=== PATIENT | female | born 1980 | race Caucasian/White ===

== ENCOUNTER 2021-03-27 07:11 | Inpatient (IN) ==
--- NOTE | 2021-02-27 09:56 | History and Physical Report ---
DATE OF ADMISSION: 03/27/2021 HISTORY OF PRESENT ILLNESS: The patient is scheduled for section on 03/27/2021: This is a 40-year-old G1, P0, due date is 03/29/2021, patient was conceived through IVF at [facility]. course has been unremarkable. The patient wishes to have a section because she has a history of anal fissures and after risks and benefits, the patient had decided to undergo elective section. COURSE: Has been unremarkable. LABS: Hepatitis B, C, HIV are negative, RPR is nonreactive. PAST MEDICAL HISTORY: The patient has history of anxiety, anal fissures and hypothyroidism. PAST SURGICAL HISTORY: The patient has had dental surgery in the past. SOCIAL HISTORY: The patient denies tobacco, drug or alcohol use. FAMILY HISTORY: Noncontributory. ALLERGIES: The patient has no known drug allergies. PHYSICAL EXAMINATION: GENERAL: Well-developed, well-nourished white female in no acute distress. HEART: S1, S2, regular rhythm and rate. LUNGS: Clear to auscultation bilaterally. ABDOMEN: Gravid. heart rate today is 140s. The patient has no contractions, no shortness of breath. EXTREMITIES: No cyanosis, clubbing or edema. PELVIC: Deferred. ASSESSMENT AND PLAN: A 40-year-old G1, P0, through IVF, due date 03/29/2021, the patient wishes to have section because of history of anal fissures. Risks and benefits of surgery are discussed including infection, bleeding, and damage to adjacent structures. The patient was signed consent on day of surgery with Dr. Arellano.
--- NOTE | 2021-03-18 08:31 | Anesthesiology Consultation ---
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 Preoperative COVID19 testing to be completed on 03/25 at [facility]. Chart Review Chart Review: Patient NOT seen in Pre Admission Testing and entry specialist initiated History Surgery Operation Date: 03/27/21 09:05 Proposed Procedures p Section in JAREK - Destiny Arellano MD Height/Weight Height: 5 ft 6.75 in Weight: 96.162 kg Allergies Allergy/AdvReac Type Severity Reaction Status Date / Time No Known Allergies Allergy Unverified 03/15/21 11:31 Medications Home Medications Medication Instructions Recorded Confirmed Last Taken thyroid (pork) [[place] Thyroid] 30 mg PO QAM 02/21/19 03/15/21 02/20/19 Dha 500 500 mg PO QAM 03/15/21 03/15/21 Unknown Magnesium Maleate 360 mg PO QAM 03/15/21 03/15/21 Unknown lactobacillus combination no.4 3,000 mmu cells PO QAM 03/15/21 03/15/21 Unknown [Probiotic] [id number] 1 tab PO QAM 03/15/21 03/15/21 Unknown [] zinc 50 mg PO DAILY 03/15/21 03/15/21 Unknown Past Medical History Medical History (Updated 03/18/21 @ 08:29 by Danny Argueta) Anxiety hx Depression hx GERD (gastroesophageal reflux disease) during History of COVID-19 10/2020 head cold symptoms, ache, fatigue, no current problems Hypothyroidism Past Surgical History Surgical History (Updated 03/18/21 @ 08:28 by Danny Argueta) Hx of colonoscopy Hx of pelvic surgery egg retrieval Hx of wisdom tooth extraction Social History Smoking Status: Former smoker Do You Dip or Chew Tobacco: No Hx Alcohol Use: No Hx Substance Use: No substance use type: does not use
[~2021-03-27 07:11] MED LIST: CITRIC ACID/SODIUM CITRATE 15 ML UDC PO SCH; LACTATED RINGER'S 1,000 ML IV SCH; ceFAZolin 2,000 MG in SYRINGE 0 ML IV SCH
[2021-03-27] MEDS ORDERED: LACTATED RINGER'S 1,000 ML IV SCH (07:56)
[2021-03-27 08:01] LABS: Basophils # (auto) 0.01 K/uL (0-0.2); Basophils % (auto) 0.1 %; Eosinophils # (auto) 0.08 K/uL (0-0.5); Eosinophils % (auto) 0.9 %; Hematocrit (blood only) 39.2 % (37-47); Hemoglobin 13.8 g/dL (12.0-16.0); Immature Granulocytes # (auto) 0.04 K/uL (0.00-0.02); Immature Granulocytes % (auto) 0.5 %; Lymphocytes # (auto) 1.57 K/uL (1.2-3.4); Lymphocytes % (auto) 18.3 %; Mean Corpuscular Hemoglobin 32.7 pg (25-34); Mean Corpuscular Hgb Conc 35.2 g/dL (32-36); Mean Corpuscular Volume 92.9 fL (80-100); Mean Platelet Volume 11.5 fL (7.4-10.4); Monocytes # (auto) 0.68 K/uL (0.11-0.59); Monocytes % (auto) 7.9 %; Neutrophils # (auto) 6.22 K/uL (1.4-6.5); Neutrophils % (auto) 72.3 %; Platelet Count 170 K/uL (130-400); RDW Coefficient of Variation 12.9 % (11.5-14.5); RDW Standard Deviation 43.4 fL (36.4-46.3); Red Blood Count 4.22 M/uL (4.2-5.4)
[2021-03-27] MEDS ORDERED: fentaNYL citrate 100 MCG/2 ML VIAL ONE (08:51)
[2021-03-27] MEDS ORDERED: MoRPHine SULFATE PF 1 MG/ML 10 ML AMP/VIAL ONE (08:51)
--- NOTE | 2021-03-27 09:36 | History & Physical Bridge Note ---
Date of Service March 27, 2021 History & Physical Bridge Note I have examined the patient, reviewed the History & Physical and in the interval since the performance of the History & Physical I have noted the following changes of clinical significance: no changes noted h/o anal fistula, recommended Csection by colorectal surgeon
[2021-03-27] MEDS ORDERED: METHYLERGONOVINE MALEATE 0.2 MG/ML AMP ONE (11:10)
[2021-03-27] MEDS ORDERED: PHENYLEPHRINE 100MCG/ML 5ML SYR ONE (11:12)
[2021-03-27] MEDS ORDERED: ePHEDrine sulfate 50 MG/ML SYR ONE (11:12)
[2021-03-27] MEDS ORDERED: ONDANSETRON INJ 2 MG/ML 2 ML VIAL ONE (11:12)
[2021-03-27] MEDS ORDERED: OXYTOCIN 10 UNITS/ML VIAL ONE (11:12)
[2021-03-27] MEDS ORDERED: LACTATED RINGER'S 500 ML IV PRN (11:29)
[2021-03-27] MEDS ORDERED: ePHEDrine sulfate 50 MG/ML AMP IV PRN (11:29)
[2021-03-27] MEDS ORDERED: NALOXONE HCL 1 MG in SODIUM CHLORIDE 0.9% 1000ML 1,000 ML IV PRN (11:29)
[2021-03-27] MEDS ORDERED: HYDROmorphone INJ 0.5 MG/0.5 ML SYR IV PRN (11:29)
[2021-03-27] MEDS ORDERED: diphenhydrAMINE 50 MG/ML VIAL IV PRN (11:29)
[2021-03-27] MEDS ORDERED: NALOXONE HCL 0.4 MG/1 ML VIAL/CARP IV PRN (11:29)
[2021-03-27] MEDS ORDERED: NALOXONE HCL 0.08 MG in SYRINGE 1.8 ML IV PRN (11:29)
[2021-03-27] MEDS ORDERED: ONDANSETRON INJ 2 MG/ML 2 ML VIAL IV PRN (11:29)
[2021-03-27] MEDS ORDERED: MoRPHine SULFATE 2 MG/ML CARP IV PRN (11:29)
[2021-03-27] MEDS ORDERED: MoRPHine SULFATE PF 1 MG/ML 10 ML AMP/VIAL INT SPINAL ONE (11:29)
[2021-03-27] MEDS ORDERED: NO NARCOTICS OR SEDATIVES SCH (11:30)
[2021-03-27] MEDS ORDERED: SODIUM CHLORIDE 0.9% 1000ML 1,000 ML IV SCH (11:30)
[2021-03-27] MEDS ORDERED: DIPHTHERIA/TETANUS/PERTUSSIS 0.5 ML SYR/VIAL IM ONE (11:46)
[2021-03-27] MEDS ORDERED: BENZOCAINE 20% AER SPR 82.5 GM CAN EXT PRN (11:46)
[2021-03-27] MEDS ORDERED: MAGNESIUM HYDROXIDE SUSP 30 ML UDC PO PRN (11:46)
[2021-03-27] MEDS ORDERED: MEASLES, MUMPS & RUBELLA VIRUS VIAL SQ ONE (11:46)
[2021-03-27] MEDS ORDERED: SUPERCREAM 0.870% 15 GM JAR EXT PRN (11:46)
[2021-03-27] MEDS ORDERED: HYDROCORTISONE ACETATE 25 MG SUPP PR PRN (11:46)
[2021-03-27] MEDS ORDERED: SENNA 8.6 MG TAB PO PRN (11:46)
--- NOTE | 2021-03-27 11:46 | Post Operative Brief Note ---
Immediate Post Op Note v1 Date of Surgery March 27, 2021 Pre & Post Diagnosis Operation Date: 03/27/21 09:10 Pre-Op Diagnosis: Term , anal fistula, elective primary section Post-Op Diagnosis: Term , anal fistula, elective primary section I identified the patient and participated in the time-out.: Yes Procedure Operation Date: 03/27/21 09:10 Actual Procedures p Primary Section in OR#3 for living female child at 1103(Bilateral) - Destiny Arellano MD Surgeon Destiny Arellano MD Auger Operator Dr Lee Estimated Blood Loss 600 Findings Consistent with Post-Op Diagnosis Drains Chung Catheter (chung inserted after spinal without difficulty. Pt tolerated well, draining clear yellow urine. Anesthesia to monitor output intraoperatively.) Anesthesia Type Spinal Complications none Disposition Accompanied Patient To Recovery: Yes Disposition: L&D
[2021-03-27] MEDS ORDERED: miSOPROStoL 100 MCG TAB ONE (11:52)
[2021-03-27] MEDS ORDERED: CARBOPROST TROMETHAMINE 250 MCG/ML AMPUL ONE (11:54)
--- NOTE | 2021-03-27 13:26 | Operative Report (OR) ---
DATE OF SURGERY: 03/27/2021. PREOPERATIVE DIAGNOSIS: The patient is a 40-year-old 1, para 0, at 39 weeks and 5 days of gestation who has a history of anal fistula, recommended primary section by the colorectal surgeon. POSTOPERATIVE DIAGNOSIS: The patient is a 40-year-old 1, para 0, at 39 weeks and 5 days of gestation who has a history of anal fistula, recommended primary section by the colorectal surgeon. PROCEDURE: Primary low transverse with Pfannenstiel skin incision. SURGEON: Destiny Arellano MD. WIRE FENCE ERECTOR: Zari Lee MD. ANESTHESIA: Spinal. ANESTHESIOLOGIST: Dr. Figueroa. ESTIMATED BLOOD LOSS: 600 mL. DRAINS: Tinajero catheter drained 100 mL of clear urine. COMPLICATIONS: None. FINDINGS: Baby was a viable female infant delivered at 11:03 a.m. Apgars were 8 and 9, weight was 3135 grams. Maternal findings: Normal uterus, fallopian tubes, and ovaries. DESCRIPTION OF PROCEDURE: The patient was taken to the operating room where spinal anesthesia was found given and found to be adequate. She was placed in dorsal supine position with a leftward tilt. She was prepared and draped in the usual sterile fashion. A Pfannenstiel skin incision was made and carried through the underlying layer of fascia with the Bovie. The fascia was incised in the midline and the incision was extended laterally with the help of Levy scissors. Lower aspect of the fascial incision was then grasped with 2 Roque clamps, elevated and the underlying rectus muscles were dissected off sharply with Levy scissors and bluntly with fingers. Upper aspect of the fascial incision was then grasped with 2 Roque clamps, elevated, and the underlying rectus muscles were dissected off sharply with Levy scissors and bluntly with fingers. Rectus muscles were in the midline. Peritoneum was identified and entered bluntly with fingers. The peritoneal incision was extended superiorly and inferiorly with good visualization of the bladder. A bladder blade was inserted. Lower uterine segment was incised in a transverse fashion and the incision was extended laterally with the help of fingers. Membranes were ruptured, clear fluid was obtained. Baby's head was delivered without difficulty. Shoulders were delivered with minimal traction. Her mouth and nose were suctioned. Cord was clamped x2 and cut at 1 minute delay, and the baby was handed off to the waiting full stack developer. Placenta was delivered manually as intact and complete. Uterus was exteriorized, cleared of all clots and debris. Uterine incision was repaired with 0 Vicryl in a running locked fashion and a second imbricating layer was placed with 0 Vicryl in a running locked fashion. Excellent hemostasis was achieved. Cul-de-sac was irrigated with warm normal saline and suctioned. Normal peritoneum, ovaries and fallopian tubes were visualized. Uterus was returned to the abdomen. The pelvis was irrigated with warm normal saline and suctioned. Incision was checked to be again hemostatic. Parietal peritoneum was reapproximated with 3-0 Vicryl in a running fashion and rectus muscles were reapproximated with the same suture in a running fashion. Over the rectus muscle and under the fascia were hemostatic. The rectus fascia was reapproximated with 0 Vicryl in a running fashion starting from both corners meeting in the midline. Subcuticular fat tissue was brought together with 3-0 Vicryl in a running fashion and the skin was closed with 4-0 Monocryl in a subcuticular fashion. The patient tolerated the procedure well. Sponge, lap, needle count was correct x3. No complications happened. I was and Dr. Lee was present during the whole procedure. She was given 2 g of cefazolin before surgery. She was taken to recovery room in stable condition. Job ID: [id number] [facility]
[2021-03-27] MEDS: SIMETHICONE 80 MG CHEW PO SCH ×3 (13:40→20:51)
[2021-03-27] MEDS: ACETAMINOPHEN 1,000 MG/100 ML VIAL IV PRN ×2 (14:09→20:27)
[2021-03-27] MEDS: OXYTOCIN 20 UNITS in LACTATED RINGER'S 1,000 ML IV SCH ×2 (14:28→23:52)
--- NOTE | 2021-03-27 15:58 | Anesthesiology Progress Note ---
Date of Service March 27, 2021 Anesthesia Post Procedure Vital Signs Vital Signs: Temp Pulse Resp BP Pulse Ox 03/27/21 15:48 73 106/67 95 03/27/21 15:43 76 112/60 96 03/27/21 15:38 72 97 03/27/21 15:33 73 110/59 L 94 03/27/21 15:23 73 114/60 94 03/27/21 15:18 70 95 03/27/21 15:14 75 108/77 03/27/21 15:13 79 97 03/27/21 15:08 78 95 03/27/21 15:03 77 95 03/27/21 14:58 78 95 03/27/21 14:53 73 106/63 96 03/27/21 14:48 80 95 03/27/21 14:43 69 101/59 L 93 03/27/21 14:38 85 95 03/27/21 14:33 75 100/57 L 93 03/27/21 14:30 20 03/27/21 14:28 81 94 03/27/21 14:23 75 93/54 L 95 03/27/21 14:18 77 94 03/27/21 14:13 79 95 03/27/21 14:08 76 95 03/27/21 14:04 77 152/63 H 03/27/21 14:03 83 93 03/27/21 14:00 20 03/27/21 13:58 81 96 03/27/21 13:53 85 105/71 96 03/27/21 13:48 86 95 03/27/21 13:43 85 118/61 96 03/27/21 13:38 84 93 03/27/21 13:37 78 106/65 03/27/21 13:33 90 95 03/27/21 13:30 20 03/27/21 13:28 94 H 95 03/27/21 13:23 96 H 96 03/27/21 13:18 93 H 97 03/27/21 13:14 92 H 131/71 03/27/21 13:13 94 H 93 03/27/21 13:08 103 H 96 03/27/21 13:05 20 03/27/21 13:03 93 H 109/76 97 03/27/21 12:58 105 H 92 03/27/21 12:55 88 20 99/65 L 03/27/21 12:53 99 H 93 03/27/21 12:48 103 H 95 03/27/21 12:45 20 03/27/21 12:43 95 H 94 03/27/21 12:38 103 H 91 03/27/21 12:36 98 H 89 L 03/27/21 12:35 20 03/27/21 12:34 87 105/56 L 03/27/21 12:33 89 96 03/27/21 12:28 83 97 03/27/21 12:25 20 03/27/21 12:23 89 110/68 96 03/27/21 12:18 95 H 87 L 03/27/21 12:15 20 03/27/21 12:13 82 106/70 98 03/27/21 12:09 90 107/68 03/27/21 12:08 89 92 03/27/21 12:07 87 92 03/27/21 12:05 36.5 C 18 03/27/21 12:03 94 H 108/67 99 03/27/21 07:48 36.6 C 20 03/27/21 07:29 36.6 C 88 20 118/75 Pain Intensity Lower Abdomen: Pain Intensity: 4 Transfer of Care Handoff Completed per policy Notes Mental Status: alert / awake / arousable and participated in evaluation Patient Amnestic to Procedure: Yes Nausea / Vomiting: adequately controlled Pain: adequately controlled Airway Patency, RR, SpO2: stable & adequate BP & HR: stable & adequate Hydration State: stable & adequate Neuraxial Anesthesia: was administered and sensory block is resolving Anesthetic Complications: no major complications apparent and Pt Satisfied with anesthetic care
[2021-03-27] MEDS: LACTATED RINGER'S 1,000 ML IV SCH ×2 (17:50→22:01)
[2021-03-27] MEDS: DOCUSATE SODIUM 100 MG CAP PO SCH (20:52)
[2021-03-28] MEDS: ACETAMINOPHEN 1,000 MG/100 ML VIAL IV PRN (04:20)
[2021-03-28] MEDS ORDERED: diphenhydrAMINE 50 MG/ML VIAL IV PRN (05:30)
[2021-03-28] MEDS ORDERED: diphenhydrAMINE Capsule 25 MG CAP PO PRN (05:30)
[2021-03-28] MEDS ORDERED: PROMETHAZINE HCL 25 MG in SODIUM CHLORIDE 0.9% 50 ML IV PRN (05:30)
[2021-03-28] MEDS ORDERED: ONDANSETRON INJ 2 MG/ML 2 ML VIAL IV PRN (05:30)
[2021-03-28] MEDS ORDERED: DC INTRASPINAL MORPHINE ONE (05:30)
[2021-03-28] MEDS ORDERED: MEPERIDINE HCL 50 MG/ML CARP IV PRN (05:30)
[2021-03-28] MEDS: LACTATED RINGER'S 1,000 ML IV SCH (05:34)
[2021-03-28] MEDS ORDERED: ceFAZolin 2000MG 2,000 MG/15 ML SYR IV SCH (06:00)
[2021-03-28 06:35] LABS: Basophils # (auto) 0.01 K/uL (0-0.2); Basophils % (auto) 0.1 %; Eosinophils # (auto) 0.06 K/uL (0-0.5); Eosinophils % (auto) 0.6 %; Hematocrit (blood only) 36.7 % (37-47); Hemoglobin 12.7 g/dL (12.0-16.0); Immature Granulocytes # (auto) 0.04 K/uL (0.00-0.02); Immature Granulocytes % (auto) 0.4 %; Lymphocytes # (auto) 1.54 K/uL (1.2-3.4); Lymphocytes % (auto) 14.9 %; Mean Corpuscular Hemoglobin 32.2 pg (25-34); Mean Corpuscular Hgb Conc 34.6 g/dL (32-36); Mean Corpuscular Volume 93.1 fL (80-100); Mean Platelet Volume 11.5 fL (7.4-10.4); Monocytes # (auto) 0.73 K/uL (0.11-0.59); Monocytes % (auto) 7.1 %; Neutrophils # (auto) 7.97 K/uL (1.4-6.5); Neutrophils % (auto) 76.9 %; Platelet Count 157 K/uL (130-400); RDW Coefficient of Variation 12.9 % (11.5-14.5); Red Blood Count 3.94 M/uL (4.2-5.4); White Blood Count 10.35 K/uL (4.8-10.8)
--- NOTE | 2021-03-28 08:08 | Anesthesiology Progress Note ---
Date of Service March 28, 2021 Anesthesia Post Procedure Vital Signs Vital Signs: Temp Pulse Pulse Resp BP BP Pulse Ox 03/28/21 05:25 16 98 03/28/21 04:25 36.8 C 68 16 106/73 03/28/21 04:15 18 97 03/28/21 02:45 16 100 03/28/21 01:15 16 96 03/28/21 00:05 37 C 65 16 104/68 97 03/27/21 23:45 16 99 03/27/21 22:15 16 98 03/27/21 21:15 18 99 03/27/21 20:15 16 100 03/27/21 20:05 36.8 C 72 16 113/71 100 03/27/21 19:15 18 100 03/27/21 18:45 18 99 03/27/21 17:45 16 99 03/27/21 16:45 18 100 03/27/21 15:48 36.8 C 73 72 18 106/67 106/67 95 03/27/21 15:43 76 112/60 96 03/27/21 15:38 72 97 03/27/21 15:33 73 110/59 L 94 03/27/21 15:23 73 114/60 94 03/27/21 15:18 70 95 03/27/21 15:14 75 108/77 03/27/21 15:13 79 97 03/27/21 15:08 78 95 03/27/21 15:03 77 95 03/27/21 14:58 78 95 03/27/21 14:53 73 106/63 96 03/27/21 14:48 80 95 03/27/21 14:43 69 101/59 L 93 03/27/21 14:38 85 95 03/27/21 14:33 75 100/57 L 93 03/27/21 14:30 20 03/27/21 14:28 81 94 03/27/21 14:23 75 93/54 L 95 03/27/21 14:18 77 94 03/27/21 14:13 79 95 03/27/21 14:08 76 95 03/27/21 14:04 77 152/63 H 03/27/21 14:03 83 93 03/27/21 14:00 20 03/27/21 13:58 81 96 03/27/21 13:53 85 105/71 96 06/30/21 13:48 86 95 03/27/21 13:43 85 118/61 96 03/27/21 13:38 84 93 03/27/21 13:37 78 106/65 03/27/21 13:33 90 95 03/27/21 13:30 20 03/27/21 13:28 94 H 95 03/27/21 13:23 96 H 96 03/27/21 13:18 93 H 97 03/27/21 13:14 92 H 131/71 03/27/21 13:13 94 H 93 03/27/21 13:08 103 H 96 03/27/21 13:05 20 03/27/21 13:03 93 H 109/76 97 03/27/21 12:58 105 H 92 03/27/21 12:55 88 20 99/65 L 03/27/21 12:53 99 H 93 03/27/21 12:48 103 H 95 03/27/21 12:45 20 03/27/21 12:43 95 H 94 03/27/21 12:38 103 H 91 03/27/21 12:36 98 H 89 L 03/27/21 12:35 20 03/27/21 12:34 87 105/56 L 03/27/21 12:33 89 96 03/27/21 12:28 83 97 03/27/21 12:25 20 03/27/21 12:23 89 110/68 96 03/27/21 12:18 95 H 87 L 03/27/21 12:15 20 03/27/21 12:13 82 106/70 98 03/27/21 12:09 90 107/68 03/27/21 12:08 89 92 03/27/21 12:07 87 92 03/27/21 12:05 36.5 C 18 03/27/21 12:03 94 H 108/67 99 Pain Intensity Lower Abdomen: Pain Intensity: 4 Transfer of Care Handoff Completed per policy Notes Mental Status: alert / awake / arousable Patient Amnestic to Procedure: Yes Nausea / Vomiting: adequately controlled Pain: adequately controlled Airway Patency, RR, SpO2: stable & adequate BP & HR: stable & adequate Hydration State: stable & adequate Neuraxial Anesthesia: was administered and sensory block resolved Anesthetic Complications: no major complications apparent and Pt Satisfied with anesthetic care
[2021-03-28] MEDS: DOCUSATE SODIUM 100 MG CAP PO SCH ×2 (08:57→19:43)
[2021-03-28] MEDS: ARMOUR THYROID 30 MG TAB PO SCH (08:57)
[2021-03-28] MEDS: PRENATAL VITAMIN 1 TAB PO SCH (08:57)
[2021-03-28] MEDS: FERROUS SULFATE 325 MG TAB PO SCH (08:57)
[2021-03-28] MEDS: SIMETHICONE 80 MG CHEW PO SCH ×4 (08:57→19:42)
--- NOTE | 2021-03-28 10:22 | Obstetrical Progress Note ---
Date of Service March 28, 2021 Subjective Ambulation: ambulating normally Voiding: no voiding problems Passing Gas:: Yes Diet Tolerance:: regular diet Lochia:: Small Feeding Type:: breast feeding Physical Exam Constitutional WD/WN, vitals as above comfortable incision c/d/i abdomen soft and non-tender slight gas noted neg Kayli's no edema Results & Data ([facility]) Vital Signs (Past 12 Hours) Vital Signs Temp Pulse Resp BP Pulse Ox 03/28/21 05:25 16 98 03/28/21 04:25 36.8 C 68 16 106/73 03/28/21 04:15 18 97 03/28/21 02:45 16 100 03/28/21 01:15 16 96 03/28/21 00:05 37 C 65 16 104/68 97 03/27/21 23:45 16 99 Laboratory Results 03/27/21 03/27/21 03/28/21 07:48 07:52 06:12 WBC 8.60 10.35 RBC 4.22 3.94 L Hgb 13.8 12.7 Hct 39.2 36.7 L MCV 92.9 93.1 MCH 32.7 32.2 MCHC 35.2 34.6 RDW Std Deviation 43.4 44.0 RDW Coeff of Chava 12.9 12.9 Plt Count 170 157 MPV 11.5 H 11.5 H Immature Gran % (Auto) 0.5 0.4 Neut % (Auto) 72.3 76.9 Lymph % (Auto) 18.3 14.9 [place] % (Auto) 7.9 7.1 Eos % (Auto) 0.9 0.6 Baso % (Auto) 0.1 0.1 Neut # (Auto) 6.22 7.97 H Lymph # (Auto) 1.57 1.54 [place] # (Auto) 0.68 H 0.73 H Eos # (Auto) 0.08 0.06 Baso # (Auto) 0.01 0.01 Immature Gran # (Auto) 0.04 H 0.04 H Blood Type A Positive Antibody Screen NEGATIVE
[2021-03-28] MEDS: oxyCODONE/ACETAMINOPHEN 5mg/325mg TAB PO PRN ×4 (11:19→23:56)
[2021-03-28] MEDS: IBUPROFEN 600 MG TAB PO PRN ×4 (11:23→23:57)
[2021-03-28] MEDS ORDERED: bisacodyL 5 MG TABEC PO SCH (20:00)
[2021-03-29] MEDS: IBUPROFEN 600 MG TAB PO PRN ×4 (04:05→20:17)
[2021-03-29] MEDS: oxyCODONE/ACETAMINOPHEN 5mg/325mg TAB PO PRN ×4 (04:06→20:17)
[2021-03-29 06:57] LABS: Hematocrit (blood only) 33.8 % (37-47); Hemoglobin 11.5 g/dL (12.0-16.0)
[2021-03-29] MEDS: SIMETHICONE 80 MG CHEW PO SCH ×4 (07:52→20:42)
[2021-03-29] MEDS: DOCUSATE SODIUM 100 MG CAP PO SCH (07:52)
[2021-03-29] MEDS: PRENATAL VITAMIN 1 TAB PO SCH (07:52)
[2021-03-29] MEDS: FERROUS SULFATE 325 MG TAB PO SCH (07:52)
[2021-03-29] MEDS: ARMOUR THYROID 30 MG TAB PO SCH (08:05)
--- NOTE | 2021-03-29 09:12 | Obstetrical Progress Note ---
Date of Service March 29, 2021 Assessment & Plan Admission and Anticipated Discharge Date Admission Date: March 27, 2021 Subjective Patient is seen and examined. She feels well, no complaints other being gassy Pain is under control with oral meds. Ambulating without dizziness Voiding without difficulty Tolerating regular diet with out N&V Flatus + BM none Bleeding is minimal No fever/ chills/ CP/ SOB/ N&V/ Leg pain Breast and bottle feeding Vital Signs Temp Pulse Resp BP BP Pulse Ox 03/29/21 07:00 36.7 C 79 20 92/62 L 97 03/29/21 04:09 36.8 C 71 16 117/79 96 03/28/21 23:34 36.6 C 77 16 111/76 98 Lab Results 03/27/21 03/27/21 03/28/21 Range/Units 07:48 07:52 06:12 WBC 8.60 10.35 (4.8-10.8) K/uL RBC 4.22 3.94 L (4.2-5.4) M/uL Hgb 13.8 12.7 (12.0-16.0) g/dL Hct 39.2 36.7 L (37-47) % MCV 92.9 93.1 (80-100) fL MCH 32.7 32.2 (25-34) pg MCHC 35.2 34.6 (32-36) g/dL RDW Std Deviation 43.4 44.0 (36.4-46.3) fL RDW Coeff of Chava 12.9 12.9 (11.5-14.5) % Plt Count 170 157 (130-400) K/uL MPV 11.5 H 11.5 H (7.4-10.4) fL Immature Gran % (Auto) 0.5 0.4 % Neut % (Auto) 72.3 76.9 % Lymph % (Auto) 18.3 14.9 % Pi[place] % (Auto) 7.9 7.1 % Eos % (Auto) 0.9 0.6 % Baso % (Auto) 0.1 0.1 % Neut # (Auto) 6.22 7.97 H (1.4-6.5) K/uL Lymph # (Auto) 1.57 1.54 (1.2-3.4) K/uL [place] # (Auto) 0.68 H 0.73 H (0.11-0.59) K/uL Eos # (Auto) 0.08 0.06 (0-0.5) K/uL Baso # (Auto) 0.01 0.01 (0-0.2) K/uL Immature Gran # (Auto) 0.04 H 0.04 H (0.00-0.02) K/uL Blood Type A Positive Antibody Screen NEGATIVE 03/29/21 Range/Units 06:42 WBC (4.8-10.8) K/uL RBC (4.2-5.4) M/uL Hgb 11.5 L (12.0-16.0) g/dL Hct 33.8 L (37-47) % MCV (80-100) fL MCH (25-34) pg MCHC (32-36) g/dL RDW Std Deviation (36.4-46.3) fL RDW Coeff of Chava (11.5-14.5) % Plt Count (130-400) K/uL MPV (7.4-10.4) fL Immature Gran % (Auto) % Neut % (Auto) % Lymph % (Auto) % [place] % (Auto) % Eos % (Auto) % Baso % (Auto) % Neut # (Auto) (1.4-6.5) K/uL Lymph # (Auto) (1.2-3.4) K/uL [place] # (Auto) (0.11-0.59) K/uL Eos # (Auto) (0-0.5) K/uL Baso # (Auto) (0-0.2) K/uL Immature Gran # (Auto) (0.00-0.02) K/uL Blood Type Antibody Screen PE: General: Alert, orientedx3, NAD CVS: S1S2 RRR Lungs; CTAB Abd: soft, NT, distended+, tympanic to percussion, BS+, fundus firm, below Umbilicus Incision: Clean, dry, intact Perineum intact, Lochia rubra minimal Ext; NT, no edema AP: 40 yo s/p C Section, pod# 2 VSS Afebrile doing well except bowel functions not complete Desires d/c home today Continue routine postop care Encourage ambulation, PO intake MOM now for BM All questions were answered D/C home this afternoon/ evening Results & Data ([facility]) Vital Signs (Past 12 Hours) Vital Signs Temp Pulse Resp BP BP Pulse Ox 03/29/21 07:00 36.7 C 79 20 92/62 L 97 03/29/21 04:09 36.8 C 71 16 117/79 96 03/28/21 23:34 36.6 C 77 16 111/76 98
[2021-03-29] MEDS ORDERED: bisacodyL 10 MG SUPP PR PRN (11:46)
--- NOTE | 2021-03-29 16:00 | Obstetrical Progress Note ---
Date of Service March 29, 2021 Assessment & Plan Admission and Anticipated Discharge Date Admission Date: March 27, 2021 Subjective Patient is reevaluated She had loos BM once and fels better Unable to eat her lunch, she felt full No N&V Kept cheerios down and juices down Has been ambulating Abd: still, distended but softer than this morning, incision, C/D/I, tympanic to percussion Recommended to stay until she is able to eat regular diet She agrees and will ambulate until dinner Results & Data ([facility]) Vital Signs (Past 12 Hours) Vital Signs Temp Pulse Resp BP BP Pulse Ox 03/29/21 07:00 36.7 C 79 20 92/62 L 97 03/29/21 04:09 36.8 C 71 16 117/79 96
[2021-03-29 16:28] VITALS: BP 106/74; PULSE 77; TEMP 98.4; O2SAT 96
--- NOTE | 2021-04-05 11:16 | Discharge Summary (DS) ---
DATE OF ADMISSION: 03/27/2021 DATE OF DISCHARGE: 03/29/2021 DETAILS OF ADMISSION: The patient is a 40-year-old G1, P0, at 39 weeks and 5 days of gestation, who has a history of anal fistula and she was recommended to have primary by the colorectal brunilda ion. Her surgery was scheduled on 03/27/2021. She delivered a viable female . Her surgery w as uncomplicated. See dictated op note for details. On postop period, the patient was doing well. Vital signs were stable, afebrile. Her day #1 H and H was 12.7/36.7. She was ambulating, passing ga s. Advanced to regular diet. She was . Physical exam was unremarkable. Abdomen was s oft, nontender. Incision was clean, dry and intact. On postoperative day #2, the patient complained of feeling gassy and distended. She was passing gas, but has not moved her bowels yet. She was elissa erating regular diet. Bleeding was minimal. She was bottle and . Her vital signs were stable. Her abdomen was slightly distended but tympanitic to percussion. Bowel sounds were present . Incision was clean, dry and intact. The patient was given milk of magnesia and encouraged to ambu late and p.o. intake. In the afternoon of postoperative day #2, the patient was doing well, vital sig ns stable, afebrile. She moved her bowels, ambulated, passed gas and she was feeling well. She tole rated a regular diet. She desired to go home on postop day #2. Discharge instructions were given. Prescriptions were written for pain. She is to be seen in the office in a week. All questions were answered. Job ID: [id number]
== END 2021-03-29 20:20 | disposition home or self-care (01) | DRG 788 ==
LOC: 4S1 07:11 → EDSTATUS 09:05 → 4S2 16:36

== ENCOUNTER 2024-08-15 05:31 | Inpatient (IN) ==
--- NOTE | 2024-08-11 09:12 | Anesthesiology Consultation ---
Date of Service August 11, 2024 Assessment & Plan (1) Encounter for pre-operative examination: Infectious disease screening: Per assessment on 08/11/24- No known recent infectious disease contacts. Patient reports onset of URI symptoms 08/09/24. Patient had preop Covid testing done 08/11 ([place])- result negative. Spoke with patient 08/12/24. She states symptoms are improving but does still have residual mild cough and congestion/runny nose. Patient was advised to continue to monitor symptoms and contact OB if symptoms not at baseline prior to . Chart Review Chart Review: clerk entry level initiated Teaching & Discussion Patient states that OB office was considering doing Gatorade protocol prior to . Patient was advised regarding current anesthesia protocol to ensure it is completed at least 4 hours prior to . History Surgery Operation Date: 08/15/24 07:30 Proposed Procedures p Section - Cynthia Reeves MD, FACOG Height/Weight Height: 5 ft 7 in Weight: 99.79 kg Allergies Allergy/AdvReac Type Severity Reaction Status Date / Time nickel Allergy Rash Verified 08/12/24 09:22 Medications Home Medications Medication Instructions Recorded Confirmed Last Taken lactobacillus combination no.4 3 3,000 mmu cells PO QAM 03/15/21 08/12/24 03/26/21 06:00 billion cell capsule (Probiotic) [id number] 1 mg 2 tab PO HS 03/15/21 08/12/24 03/26/21 06:00 tablet omega-3 fatty acids [Fish Oil] 1 cap PO HS 02/12/24 08/12/24 Unknown aspirin 81 mg capsule 81 mg PO HS 08/11/24 08/12/24 Unknown lansoprazole 30 mg capsule,delayed 30 mg PO QAM 08/11/24 08/12/24 Unknown release (Prevacid) levothyroxine 125 mcg tablet 125 mcg PO QAM 08/11/24 08/12/24 Unknown Past Medical History Medical History Anal fistula Anxiety hx Bartholin gland cyst Depression hx GERD (gastroesophageal reflux disease) during History of COVID-19 10/2020 head cold symptoms, ache, fatigue, no current problems Hypothyroidism Varicella vaccination Past Family History Family History Grandmother (Maternal) Diabetes Denies family history of Ovarian cancer Breast cancer Colorectal cancer Past Surgical History Surgical History History of esophagogastroduodenoscopy Hx of colonoscopy Hx of pelvic surgery egg retrieval Hx of wisdom tooth extraction S/P section Social History Smoking Status: Former smoker Do You Dip or Chew Tobacco: No Smoking End Date: occasionally in her 20's Hx Alcohol Use: Yes (only when not pregnent) alcohol intake frequency: a few times a week Hx Substance Use: No substance use type: does not use
[2024-08-15 06:09] LABS: Hematocrit (blood only) 37.3 % (37.0-47.0); Hemoglobin 13.1 g/dl (12.0-16.0); Mean Corpuscular Hemoglobin 32.7 pg (25.0-34.0); Mean Corpuscular Hgb Conc 35.1 g/dL (32.0-36.0); Mean Platelet Volume 11.5 fL (9.4-12.4); Platelet Count 173 K/uL (130-400); RDW Coefficient of Variation 12.9 % (11.5-14.5); RDW Standard Deviation 43.8 fL (36.4-46.3); Red Blood Count 4.01 M/uL (4.20-5.40); White Blood Count 8.24 K/ul (4.8-10.8)
[2024-08-15] MEDS: ACETAMINOPHEN 500 MG TAB PO SCH (06:28)
[2024-08-15] MEDS ORDERED: LACTATED RINGER'S 1,000 ML IV SCH (06:45)
[2024-08-15] MEDS: LACTATED RINGER'S 1,000 ML IV SCH ×2 (06:50→08:45)
--- NOTE | 2024-08-15 07:14 | History & Physical Report ---
Date of Service August 15, 2024 Assessment & Plan (1) Previous delivery affecting : Plan: Repeat section. The patient was counseled to the nature of the procedure including alternatives such as labor. Risks were discussed including bleeding infection injury to bowel bladder ureter vessels and even baby. The risks of internal organ injury were discussed as being higher with prior sections. Deep Vein Thrombosis, pulmonary embo aakash and breakdown of the incision discussed. Deep vein thrombosis pulmonary embolus hernia and failure of the incision to heal were discussed Patient verbalized understanding of this and was given ample time to ask questions Admission and Anticipated Discharge Date Admission Date: August 15, 2024 History of Present Illness Primary Care Provider: Nelson Hernandez DO Visit RICHARD Calculator Estimated Delivery Date Method Current WG Current Estimate 08/17/24 Ultrasound #1 39w 2d Other Estimates 08/17/24 Ultrasound #2 39w 2d : 2 Full term: 1 Premature: 0 Total Number of Induced Abortions: 0 Total Number of Spontaneous Abortions: 0 Ectopics: 0 Multiple births: 0 Number of Living Children: 1 and Delivery Plans IVF/ICSI * [place] [place] *Growth US Q4wks @28wks *Weekly NSTs @36wks *Weekly CALLIE's @36wks(ICSI only) Obesity (BMI between 35-39 @ beginning of ) Covered in other protocols AMA>40@del *Anatomy Scan @ 20wks * Echo 22-24wks--normal *Growth scan @32wks *Weekly NST's @36 wks *Twice weekly NST @38wks *Weekly CALLIE's @38wks *Deliver by 40 wks Hypothyroid *Check TFTs Q4wks Prior (2020) - Repeat C/S SCHEDULED FOR 08/15/[address] SERRANO Hep B Non-Immune - Rec Hep B Vaccine Polyhydramnios *Weekly NSTs if fluid 12 or greater *Weekly AFIs @ Dx *If pocket >16 refer to MFM *Deliver between [id number] 1cm possible lacrimal duct cyst on the left- found on outside US @ 35wks *follow up with peds after delivery Allergies Allergy/AdvReac Type Severity Reaction Status Date / Time nickel Allergy Rash Verified 08/12/24 09:22 Home Medications Medication Instructions Recorded Confirmed Type [id number] 1 mg 2 tab PO HS 03/15/21 08/12/24 History tablet aspirin 81 mg capsule 81 mg PO HS 08/11/24 08/12/24 History lansoprazole 30 mg capsule,delayed 30 mg PO QAM 08/11/24 08/12/24 History release (Prevacid) levothyroxine 125 mcg tablet 125 mcg PO QAM 08/11/24 08/12/24 History Patient History Medical History Anal fistula Anxiety hx Bartholin gland cyst Depression hx GERD (gastroesophageal reflux disease) during History of COVID-19 10/2020 head cold symptoms, ache, fatigue, no current problems Hypothyroidism Varicella vaccination Surgical History History of esophagogastroduodenoscopy Hx of colonoscopy Hx of pelvic surgery egg retrieval Hx of wisdom tooth extraction S/P section Family History Grandmother (Maternal) Diabetes Denies family history of Ovarian cancer Breast cancer Colorectal cancer Social History (Updated 02/12/24 @ 09:22 by Katya Juárez RN) Smoking Status: Former smoker Tobacco Type: Cigarettes Smoking End Date: occasionally in her 20's; Second Hand Exposure: No; Do You Dip or Chew Tobacco: No; Tobacco Cessation Education Requested by Patient: No Hx Alcohol Use: No (only when not pregnen) Hx Substance Use: No Preferred Language: Mohawk Communication Ability: Effective Small Kick Press Operator Required: No Beliefs That Will Affect Care: None marital status: marital status details: Yeimy Savage (53) [phone] Current Living Situation: Spouse and Family Current Living Situation Comment: Lives with and daughter current occupational status: employed [place] [employer] [place] How many Children do You have: 1 Other Information That Helps Us Care for You: No Feels Safe at Home: Yes Safety Concerns: Feels Safe At This Time Assistive Devices: Glasses Physical Exam Constitutional: WD/WN, vitals as above well developed and well nourished Respiratory: normal respiratory effort, lungs clear to auscultation normal respiratory effort Cardiovascular: RRR, no murmur, no edema Gastrointestinal (Abdomen): normal bowel sounds, soft, nontender, no hepatosplenomegaly Results & Data Vital Signs (Past 12 Hours) Vital Signs Temp Pulse Resp BP 08/15/24 05:42 98.2 F 79 18 [id number] 08/15/24 05:40 98.2 F 79 Coding Level of Care Code None Diagnoses Previous delivery affecting O34.219
[2024-08-15] MEDS ORDERED: MoRPHine SULFATE PF 1 MG/ML 10 ML AMP/VIAL ONE (07:24)
[2024-08-15] MEDS ORDERED: PHENYLEPHRINE HCL 10 MG/ML VIAL ONE (07:36)
[2024-08-15] MEDS ORDERED: OXYTOCIN 10 UNITS/ML VIAL ONE ×2 (07:36→08:43)
[2024-08-15] MEDS: ceFAZolin 3000MG 3,000 MG/72.5 ML BAG IV SCH (07:38)
[2024-08-15] MEDS: CITRIC ACID/SODIUM CITRATE 15 ML UDC PO SCH (07:41)
[2024-08-15] MEDS: KETOROLAC 30 MG/ML VIAL IV SCH (08:30)
[2024-08-15] MEDS ORDERED: KETOROLAC 30 MG/ML VIAL ONE (08:43)
[2024-08-15] MEDS: OXYTOCIN 20 UNITS/LR 1,002 ML IV SCH (08:45)
[2024-08-15] MEDS ORDERED: ePHEDrine sulfate 50 MG/ML AMP IV PRN (08:50)
[2024-08-15] MEDS ORDERED: HYDROmorphone INJ 0.5 MG/0.5 ML SYR IV PRN (08:50)
[2024-08-15] MEDS ORDERED: diphenhydrAMINE 50 MG/ML VIAL IV PRN (08:50)
[2024-08-15] MEDS ORDERED: MoRPHine SULFATE PF 1 MG/ML 10 ML AMP/VIAL INT SPINAL ONE (08:50)
[2024-08-15] MEDS ORDERED: oxyCODONE HCL IR 5 MG TAB (IMMEDIATE RELEASE) PO PRN (08:50)
[2024-08-15] MEDS ORDERED: MoRPHine SULFATE 2 MG/ML CARP IV PRN (08:50)
[2024-08-15] MEDS ORDERED: ONDANSETRON INJ 2 MG/ML 2 ML VIAL IV PRN ×2 (08:50→10:09)
[2024-08-15] MEDS ORDERED: NALOXONE HCL 1 MG in SODIUM CHLORIDE 0.9% 1,000 ML IV PRN (08:50)
[2024-08-15] MEDS ORDERED: NALOXONE HCL 0.08 MG in SYRINGE 1.8 ML IV PRN (08:50)
[2024-08-15] MEDS ORDERED: NALOXONE HCL 0.4 MG/1 ML VIAL/CARP IV PRN (08:50)
[2024-08-15] MEDS ORDERED: MEPERIDINE HCL 25 MG/ML CARP/VIAL IV PRN (08:50)
[2024-08-15] MEDS ORDERED: PROMETHAZINE 6.25 MG/50.25 ML BAG IV PRN (08:50)
[2024-08-15] MEDS ORDERED: NALBUPHINE HCL INJ 10 MG/ML AMP IV PRN (08:50)
--- NOTE | 2024-08-15 08:51 | Operative Report ---
Post Operative Report Pre & Post Diagnosis Operation Date: 08/15/24 07:30 Repeat section I identified the patient and participated in the time-out.: Yes Procedure Operation Date: 08/15/24 07:30 Low transverse section Surgeon Cynthia Reeves MD, FACOG Deck Worker Dr. Espana Quantitative Blood Loss (QBL) 325 Findings Consistent with Post-Op Diagnosis Specimens cord blood Description of Procedure Regional anesthetic had been given by anesthesia patient was prepped and draped with a leftward tilt preoperative antibiotics had been given in appropriate scot ng by anesthesiology. Once the prep was allowed to fully dry timeout was performed. Pickups with teeth were used to test the incision area was found to be adequate for incision as the patient did not feel sharp pain. Scalpel was used to make a Pfannenstiel incision on the lower abdomen. We then cut through the subcutaneous fat down to the level of the anterior rectus sheath fascia this was cut in the midline and then extended laterally with the curved Levy scissors. At this stage we then placed 2 Roque clamps on the anterior aspect of the fascia. Using the curved Levy's we are able to dissect the fascia superiorly away from the rectus muscles. Care was taken to maintain hemostasis. Roque clamps were then placed to the inferior aspect of the anterior sheath of the fascia. Fascia was then dissected away from the rectus muscles inferiorly towards the pubic bone. A Roque was then placed in the midline both inferiorly and superiorly. This was to allow exposure by retraction rectus muscles were in the midline with were then able to cut through the peritoneum and then enter the peritoneal cavity. Opening was enlarged to allow exposure of the peritoneal cavity both superiorly and inferiorly. Once adequate space was obtained a bladder retractor was placed to expose the lower segment Metzenbaums were used to dissect the bladder flap inferiorly away from the uterus. This was done sharply bladder retractor was then repositioned to expose the lower segment of the uterus Fresh scalpel was used to make a low transverse incision on the uterus. Uterus was then entered bluntly with the operators finger, membranes ruptured and the opening was enlarged using the operators fingers bluntly pulling superiorly and inferiorly to allow exposure. Baby was delivered by first flexion of the head elevation of the head out of the pelvis and then pressure by the studio assistant on the maternal abdomen. Baby's head was then delivered mouth and then nares were suctioned and then using gentle traction the baby was fully delivered. Live vigorous . Fluid was clear cord clamped and cut cord gases obtained cord blood obtained baby handed to pediatrics. Placenta removed was removed with traction we ensure the entire placenta was removed with a moist lap sponge into the uterus Uterus was then exteriorized. IV Pitocin had been started by anesthesia tone improved there were no extensions the uterus was then closed using 0 Monocryl in a 2 layer closure the first layer closed in a running locked fashion from left to right and then a second closure from left to right in a running nonlocked fashion. At this stage hemostasis was excellent. Uterus was placed back in the peritoneal cavity with suction irrigation out and inspection of the uterus at this stage revealed excellent hemostasis Retractors were removed urine color was clear at this stage of the case we inspected the rectus muscles they were hemostatic fascia was closed with 0 Vicryl subcutaneous fat was irrigated and closed with 3-0 Vicryl skin closed with 4-0 subcuticular Monocryl Note the adnexa and uterus were normal urine was clear at the end of the procedure I attest to the content of the Intraoperative Record and any orders documented therein. Any exceptions are noted below. OB Procedure Charges 30033
--- NOTE | 2024-08-15 08:53 | Anesthesiology Progress Note ---
Date of Service August 15, 2024 Anesthesia Post Procedure Vital Signs Vital Signs: Temp Pulse Resp BP Pulse Ox 08/15/24 08:51 80 99 08/15/24 08:47 74 104/57 L 08/15/24 08:46 78 98 08/15/24 07:24 68 124/82 08/15/24 05:42 36.8 C 79 18 121/74 08/15/24 05:40 36.8 C 79 18 121/74 Transfer of Care Handoff Completed per policy Notes Mental Status: alert / awake / arousable Nausea / Vomiting: adequately controlled Pain: adequately controlled Airway Patency, RR, SpO2: stable & adequate BP & HR: stable & adequate Hydration State: stable & adequate Neuraxial Anesthesia: was administered and sensory block is resolving Anesthetic Complications: no major complications apparent and Pt Satisfied with anesthetic care
[2024-08-15] MEDS ORDERED: NO NARCOTICS OR SEDATIVES SCH (09:00)
[2024-08-15] MEDS ORDERED: DC INTRASPINAL MORPHINE SCH (09:00)
[2024-08-15] MEDS ORDERED: BENZOCAINE 20% SPRY 85 APPLN/85 GM CAN EXT PRN (10:09)
[2024-08-15] MEDS ORDERED: CALCIUM CARBONATE 500 MG CHEWABLE TAB PO PRN (10:09)
[2024-08-15] MEDS ORDERED: MAGNESIUM HYDROXIDE SUSP 30 ML UDC PO PRN (10:09)
[2024-08-15] MEDS ORDERED: HYDROCORTISONE ACETATE 25 MG SUPP PR PRN (10:09)
[2024-08-15] MEDS: LEVOTHYROXINE SODIUM 125 MCG TABLET PO SCH (10:19)
[2024-08-15] MEDS: DIPHTHER/TETAN/PERTUS Vaccine (Tdap, Adol/Adult) 0.5mL IM ONE (12:26)
[2024-08-15] MEDS: SIMETHICONE 80 MG CHEW PO SCH (13:17)
[2024-08-15] MEDS: ACETAMINOPHEN 325 MG TAB PO SCH (14:32)
[2024-08-15] MEDS: DOCUSATE SODIUM 100 MG CAP PO SCH (20:37)
[2024-08-16] MEDS ORDERED: oxyCODONE HCL IR 5 MG TAB (IMMEDIATE RELEASE) PO PRN (02:51)
[2024-08-16] MEDS ORDERED: diphenhydrAMINE Capsule 25 MG CAP PO PRN (02:51)
[2024-08-16] MEDS ORDERED: diphenhydrAMINE 50 MG/ML VIAL IV PRN (02:51)
[2024-08-16] MEDS ORDERED: PROMETHAZINE 12.5 MG/50.5 ML BAG IV PRN (02:51)
[2024-08-16] MEDS ORDERED: HYDROmorphone INJ 0.5 MG/0.5 ML SYR IV PRN (02:51)
[2024-08-16 03:06] VITALS: O2SAT 98
[2024-08-16] MEDS: LEVOTHYROXINE SODIUM 125 MCG TABLET PO SCH (06:25)
[2024-08-16 06:26] LABS: Basophils # (auto) 0.05 K/uL (0.00-0.20); Basophils % (auto) 0.6 %; Eosinophils % (auto) 1.1 %; Hemoglobin 11.3 g/dl (12.0-16.0); Immature Granulocytes # (auto) 0.07 K/uL (0.01-0.20); Immature Granulocytes % (auto) 0.8 %; Lymphocytes # (auto) 1.82 K/uL (1.20-3.40); Lymphocytes % (auto) 20.2 %; Mean Corpuscular Hemoglobin 32.8 pg (25.0-34.0); Mean Corpuscular Hgb Conc 34.2 g/dL (32.0-36.0); Mean Corpuscular Volume 95.7 fL (80.0-100.0); Mean Platelet Volume 11.3 fL (9.4-12.4); Monocytes # (auto) 0.77 K/uL (0.11-0.59); Monocytes % (auto) 8.5 %; Neutrophils # (auto) 6.21 K/uL (1.40-6.50); Neutrophils % (auto) 68.8 %; Platelet Count 155 K/uL (130-400); RDW Coefficient of Variation 13.2 % (11.5-14.5); RDW Standard Deviation 45.5 fL (36.4-46.3); Red Blood Count 3.45 M/uL (4.20-5.40); White Blood Count 9.02 K/ul (4.8-10.8)
--- NOTE | 2024-08-16 06:37 | Obstetrical Progress Note ---
Date of Service <Cyrus Corey MD - Last Filed: 08/16/24 07:37> August 16, 2024 Assessment & Plan <Cyrus Corey MD - Last Filed: 08/16/24 07:37> (1) care and examination: (2) Previous delivery affecting : (3) Hypothyroidism affecting : (4) Elderly multigravida: Plan POD#1 s/p repeat CS: Stable. Rh+, gbs-, ri, vitals and H&H wnl Continue routine care, continue OOB and ambulation, diet as tolerated Possible DC tomorrow <Cynthia Reeves MD, FACOG - Last Filed: 08/16/24 07:40> (1) care and examination: (2) Previous delivery affecting : (3) Hypothyroidism affecting : (4) Elderly multigravida: Subjective <Cyrus Corey MD - Last Filed: 08/16/24 07:37> Payton is a 43 y/o female who is POD#1 following delivery at term. Reports mild abd pain, got off IV analgesics, wants to see how she feels on po meds Is eating, ambulating, voiding normally No BMs but is passing gas Having appropriate lochia Constitutional: no fever, no chills or no sweats Respiratory: no dyspnea Cardiovascular: no chest pain, no palpitations or no calf pain Breast: no breast pain Gastrointestinal: no nausea or no vomiting Genitourinary (female): no dysuria Neurologic: no headache(s) no changes in vision, no headaches Physical Exam <Cyrus Corey MD - Last Filed: 08/16/24 07:37> General: Alert, oriented. No acute distress. Cardiac: Regular rate and rhythm, no murmurs, rubs, or gallops. Respiratory: Clear to auscultation bilaterally. No increased work of breathing. Symmetrical chest rise. No respiratory distress. Abdomen: Soft, nontender, nondistended. Bowel sounds present. Uterus: Uterine fundus firm, nontender. Surgical dressing c/d/i Lower extremities: No lower extremity edema or swelling. No deep calf pain. Results & Data <Cyrus Corey MD - Last Filed: 08/16/24 07:37> Vital Signs (Past 12 Hours) Vital Signs Temp Pulse Resp BP Pulse Ox O2 Del Method 08/16/24 03:00 36.6 C 74 20 112/75 98 Room Air 08/16/24 02:00 16 97 08/16/24 01:00 18 96 08/16/24 00:08 18 97 08/16/24 00:08 36.4 C L 71 18 99/64 L 97 Room Air 08/15/24 23:00 16 95 08/15/24 22:00 16 94 08/15/24 21:00 18 95 08/15/24 20:45 20 96 08/15/24 20:45 36.8 C 71 20 113/72 96 Room Air 08/15/24 19:10 18 97 Laboratory Results 08/16/24 06:04 Supervising Physician <Cynthia Reeves MD, FACOG - Last Filed: 08/16/24 07:40> Co-Signing Physician Notes Resident Physician Supervision Note: I interviewed and examined the patient. Discussed with Dr. Corey and agree with findings and plan as documented in the note. Any exceptions or clarifications are listed here: [None] Documented By: Cynthia Reeves MD, FACOG Resident Activity Tracking <Cyrus Corey MD - Last Filed: 08/16/24 07:37> Resident Involvement: Resident Care Provided Care Provided: Adult Hospital Medicine and OB Delivery
[2024-08-16] MEDS: PRENATAL VITAMIN 1 TAB PO SCH (08:03)
[2024-08-16] MEDS: FERROUS SULFATE 325 MG TAB PO SCH (08:03)
[2024-08-16] MEDS ORDERED: KETOROLAC 30 MG/ML VIAL IV PRN (08:47)
[2024-08-16] MEDS: IBUPROFEN 600 MG TAB PO SCH (09:23)
[2024-08-16] MEDS: bisacodyL 5 MG TABEC PO SCH (21:22)
--- NOTE | 2024-08-17 06:12 | Obstetrical Progress Note ---
Date of Service <Cyrus Corey MD - Last Filed: 08/17/24 07:33> August 17, 2024 Assessment & Plan <Cyrus Corey MD - Last Filed: 08/17/24 07:33> (1) care and examination: (2) Previous delivery affecting : (3) Hypothyroidism affecting : (4) Elderly multigravida: Plan POD#2 s/p repeat CS: Stable. Rh+, gbs-, ri, vitals and H&H wnl Continue routine care, continue OOB and ambulation, diet as tolerated DC today <Geni Bowers MD, FACOG - Last Filed: 08/17/24 07:59> (1) care and examination: (2) Previous delivery affecting : (3) Hypothyroidism affecting : (4) Elderly multigravida: Subjective <Cyrus Corey MD - Last Filed: 08/17/24 07:33> Payton is a 43 y/o female who is POD#2 following delivery at term. Reports mild abd pain Is eating, ambulating, voiding normally No BMs but is passing gas Having appropriate lochia Constitutional: no fever, no chills or no sweats Respiratory: no dyspnea Cardiovascular: no chest pain, no palpitations or no calf pain Breast: no breast pain Gastrointestinal: no nausea or no vomiting Genitourinary (female): no dysuria Neurologic: no headache(s) Physical Exam <Cyrus Corey MD - Last Filed: 08/17/24 07:33> General: Alert, oriented. No acute distress. Cardiac: Regular rate and rhythm, no murmurs, rubs, or gallops. Respiratory: Clear to auscultation bilaterally. No increased work of breathing. Symmetrical chest rise. No respiratory distress. Abdomen: Soft, nontender, nondistended. Bowel sounds present. Uterus: Uterine fundus firm, nontender, palpable 2cm below the umbilicus. Surgical scar healing well Lower extremities: No lower extremity edema or swelling. No deep calf pain. Results & Data <Cyrus Corey MD - Last Filed: 08/17/24 07:33> Vital Signs (Past 12 Hours) Vital Signs Temp Pulse Resp BP O2 Del Method 08/16/24 23:00 36.4 C L 75 16 117/73 Room Air 08/16/24 19:15 36.7 C 82 16 132/83 Room Air Laboratory Results Hgb 10.8 g/dl (12.0-16.0) L 08/17/24 05:51 Hct 31.6 % (37.0-47.0) L 08/17/24 05:51 Supervising Physician <Geni Bowers MD, FACOG - Last Filed: 08/17/24 07:59> Co-Signing Physician Notes Resident Physician Supervision Note: I was present with Dr. Corey during the history and exam. I discussed the case with the resident and agree with the findings and plan as documented in the no te. Any exceptions or clarifications are listed here: stable doing well, eating, voiding, ambulating. no pain issues, denies use of oxycodone and does not want script for home. wants to go home. , rhpos, ri. abd soft 2 down nt, nt calves. incision c/d/i. pod#2 s/p c/s d/c home,instructions reviewed. has pp visit at 6wk scheduled. Documented By: Geni Bowers MD, FACOG Resident Activity Tracking <Cyrus Corey MD - Last Filed: 08/17/24 07:33> Resident Involvement: Resident Care Provided Care Provided: Adult Hospital Medicine and OB Delivery
[2024-08-17 06:20] LABS: Hematocrit (blood only) 31.6 % (37.0-47.0); Hemoglobin 10.8 g/dl (12.0-16.0)
[2024-08-17] MEDS ORDERED: bisacodyL 10 MG SUPP PR PRN (08:47)
[2024-08-17] MEDS: IBUPROFEN 600 MG TAB PO PRN (09:13)
[2024-08-17] MEDS: SENNA 8.6 MG TAB PO PRN (09:14)
[2024-08-17 12:31] VITALS: RESP 18; TEMP 98.1
[2024-08-17 12:44] VITALS: BP 107/73; PULSE 70
[2024-08-17] MEDS ORDERED: ACETAMINOPHEN 325 MG TAB PO PRN (14:47)
--- NOTE | 2024-08-19 10:58 | Discharge Summary ---
Date of Service August 19, 2024 Admission HPI Per Admitting Provider Visit RICHARD Calculator Estimated Delivery Date Method Current WG Current Estimate 08/17/24 Ultrasound #1 39w 2d Other Estimates 08/17/24 Ultrasound #2 39w 2d : 2 Full term: 1 Premature: 0 Total Number of Induced Abortions: 0 Total Number of Spontaneous Abortions: 0 Ectopics: 0 Multiple births: 0 Number of Living Children: 1 and Delivery Plans IVF/ICSI * [facility] [place] 04/05/24--normal *Growth US Q4wks @28wks *Weekly NSTs @36wks *Weekly CALLIE's @36wks(ICSI only) Obesity (BMI between 35-39 @ beginning of ) Covered in other protocols AMA>40@del *Anatomy Scan @ 20wks * Echo 22-24wks--normal *Growth scan @32wks *Weekly NST's @36 wks *Twice weekly NST @38wks *Weekly CALLIE's @38wks *Deliver by 40 wks Hypothyroid *Check TFTs Q4wks Prior (2020) - Repeat C/S SCHEDULED FOR 08/15/[address] SERRANO Hep B Non-Immune - Rec Hep B Vaccine Polyhydramnios *Weekly NSTs if fluid 12 or greater *Weekly AFIs @ Dx *If pocket >16 refer to MFM *Deliver between [id number] 1cm possible lacrimal duct cyst on the left- found on outside US @ 35wks *follow up with peds after delivery Admission Exam (Per Admitting) Constitutional WD/WN, vitals as above well developed and well nourished Respiratory normal respiratory effort, lungs clear to auscultation normal respiratory effort Cardiovascular RRR, no murmur, no edema Gastrointestinal (Abdomen) normal bowel sounds, soft, nontender, no hepatosplenomegaly Discharge Data Consultations 08/15/24 05:34 Consult Anesthesiology Stat Procedures Performed Operation Date: 08/15/24 07:30 Actual Procedures p Section with delivery of viable female infant at 0809 - [place]ano [place] [facility] [place] (1) care and examination: (2) Previous delivery affecting : (3) Hypothyroidism affecting : (4) Elderly multigravida: Plan POD#2 s/p repeat CS: Stable. Rh+, gbs-, ri, vitals and H&H wnl Continue routine care, continue OOB and ambulation, diet as tolerated DC today Supervising Physician Co-Signing Physician Notes Resident Physician Supervision Note: I was present with Dr. Corey during the history and exam. I discussed the case with the resident and agree with the findings and plan as documented in the note. Any exceptions or clarifications are listed here: stable doing well, eating, voiding, ambulating. no pain issues, denies use of oxycodone and does not want script for home. wants to go home. , rhpos, ri. abd soft 2 down nt, nt calves. incision c/d/i. pod#2 s/p c/s d/c home,instructions reviewed. has pp visit at 6wk scheduled. Documented By: Geni Bowers MD, FACOG Coding Level of Care Code None Diagnoses care and examination Z39.2 Previous delivery affecting O34.219 Hypothyroidism affecting O99.280; E03.9 Elderly multigravida O09.529
== END 2024-08-17 11:45 | disposition home or self-care (01) | DRG 788 ==
LOC: 4S1 05:31 → EDSTATUS 07:30 → 4E2 11:26
DX: Z68.34 Body mass index [BMI] 34.0-34.9, adult; Z87.891 Personal history of nicotine dependence; Z3A.39 39 weeks gestation of pregnancy; Z79.890 Hormone replacement therapy; O99.214 Obesity complicating childbirth; O34.211 Maternal care for low transverse scar from previous cesarean delivery; Z79.82 Long term (current) use of aspirin; Z91.048 Other nonmedicinal substance allergy status; O40.3XX0 Polyhydramnios, third trimester, not applicable or unspecified; O99.284 Endocrine, nutritional and metabolic diseases complicating childbirth; E03.9 Hypothyroidism, unspecified; Z37.0 Single live birth; Z79.899 Other long term (current) drug therapy